=== PATIENT | male | born 1960 | race Two or more races ===

== ENCOUNTER 2021-04-16 15:00 | Emergency (ER) | payer SELFPAY ==
[~2021-04-16] VITALS: Ht 177.8 cm; Wt 68.0 kg
[2021-04-16 15:38] VITALS: BP 106/52
== END 2021-04-16 16:07 | disposition home or self-care (01) ==
LOC: ER 15:01
DX: S01.01XA Laceration without foreign body of scalp, initial encounter (principal); W01.0XXA Fall on same level from slipping, tripping and stumbling without subsequent striking against object, initial encounter; Y93.89 Activity, other specified; Y92.89 Other specified places as the place of occurrence of the external cause; Y99.8 Other external cause status
CPT/HCPCS: 12002